=== PATIENT | female | born 1975 | race Caucasian/White ===

== ENCOUNTER 2016-08-18 19:11 | Emergency (ER) | payer SELFPAY ==
[2016-08-18 21:04] LABS: BASOPHIL 0.5 % (0-2); EOSINOPHIL 0.2 % (0-5); HCT 37.7 % (37.0-47.0); HGB 12.4 g/dl (12.5-16.0); LYMPHOCYTE 33.1 % (15-48); MCH 27.7 pg (25.0-31.0); MCHC 32.9 g/dL (32.0-36.0); MCV 84.2 fL (78.0-100.0); MONOCYTE 5.8 % (0-12); NEUTROPHIL 60.4 % (41-80); PLT 284 K/uL (150-400); RBC 4.48 M/uL (4.20-5.40); RDW 14.9 % (11.5-14.0); WBC 9.7 K/uL (4.0-10.5)
[2016-08-18 21:24] LABS: ALBUMIN 4.5 g/dL (3.5-5.0); BILIRUBIN - TOTAL 0.2 mg/dL (0.1-1.0); CREATININE 0.7 mg/dL (0.5-1.0); GLOBULIN (CALCULATION) 2.8 g/dL (2.2-4.2); TOTAL PROTEIN 7.3 g/dL (6.4-8.3)
== END 2016-08-18 22:50 | disposition home or self-care (01) ==
LOC: FER 19:11
PROVIDERS: Emergency Medicine
DX: I89.0 Lymphedema, not elsewhere classified (principal); Z88.0 Allergy status to penicillin; Z88.1 Allergy status to other antibiotic agents; Z88.2 Allergy status to sulfonamides
CPT/HCPCS: 36415; 80053; 85025; 93971